=== PATIENT | male | born 1990 | race Two or more races ===

== ENCOUNTER 2019-07-20 19:42 | Emergency (ER) | payer OTHER ==
[2019-07-20 20:57] LABS: ABS Basophils 0.1 10^3/ul (0-0.2); ABS Eosinophils 0.3 10^3/ul (0-0.6); ABS Lymphocytes 3.3 10^3/ul (1.0-4.8); ABS Monocytes 0.6 10^3/ul (0-0.8); ABS Neutrophils 3.5 10^3/ul (1.5-7.7); Eosinophil % 4.3 %; Hematocrit 42 % (42-52); Hemoglobin 14.8 g/dL (14.0-18.0); Lymphocyte % 41.5 %; Mean Corpuscular HGB Conc 35 g/dL (31-36); Mean Corpuscular Hemoglobin 29 pg (27-31); Mean Corpuscular Volume 84 fL (80-94); Mean Platelet Volume 8.1 fL (7.4-10.4); Platelet Count 291 10^3/uL (150-450); Red Blood Count 5.03 10^6 /uL (4.18-5.48); Red Cell Distribution Width 14 % (10-15); White Blood Count 7.9 10^3/uL (3.5-10.8)
[2019-07-20] MEDS ORDERED: LORazepam TAB(*) 0.5 MG PO ONE (20:58)
--- NOTE | 2019-07-20 21:05 | ED ---
Neurological HPI - HPI Summary HPI Summary: Pt is a 29 y/o M presenting to the ED with a chief complaint of neurological issues. Pt states he has seizure hx, and was on Levesam and Encorate in the past , but is no longer on those medications. Today, he had some shooting headaches through the middle of his head. He also felt light headed and two episodes ( which he describes as black out for about 2 second) but denies syncope/LOC. He used to take Frisium (a benzo) after these episodes for seizure prophylaxis but he states he cant find it. He also noted tingling in his BUE and some issues with forming his words which has mostly resolved. He states hes somewhat anxious right now, and has been on 15mg Mortazapine to help him sleep/ calm his anxiety. He states he has seizures from [id number] (3 total) and had extensive workup including CT scans, EEGs. Was taken off medications in Sep 2018. No fevers or infectious symptoms. - History of Current Complaint Chief Complaint: EDSeizure Stated Complaint: HEADACHE PER EMS Time Seen by Provider: 07/20/19 20:26 Hx Obtained From: Patient Onset/Duration: Sudden Onset, Started hours ago, Resolved Timing: Intermittent Episodes Lasting: - seconds Onset Severity: Moderate Current Severity: None Neurological Deficit Location: Generalized Pain Intensity: 4 Pain Scale Used: 0-10 Numeric Episode Lasting: Seconds/Minutes - about 2 seconds Syncope Context: Unwitnessed, Unknown Aggravating: Unknown Alleviating: Unknown Associated Signs and Symptoms: Positive: Headache, Loss of Consciousness, Anxiety Related Hx: Seizure - Allergy/Home Medications Allergies/Adverse Reactions: Allergies Allergy/AdvReac Type Severity Reaction Status Date / Time No Known Allergies Allergy Verified 07/20/19 19:55 Home Medications: Home Medications Mirtazapine 15 mg PO DAILY 07/20/19 [History Confirmed 07/20/19] PMH/Surg Hx/FS Hx/Imm Hx Previously Healthy: Yes Endocrine/Hematology History: Denies: Hx Diabetes Neurological History: Reports: Hx Seizures Infectious Disease History: No Infectious Disease History: Denies: Traveled Outside the [place] in Last 30 Days - Family History Known Family History: Negative: Diabetes - Social History Occupation: Student Alcohol Use: Occasionally Hx Substance Use: No Substance Use Type: Reports: None Hx Tobacco Use: No Smoking Status (MU): Never Smoked Tobacco Review of Systems Neurological: Other - blacking out for about 2 seconds at a time Positive: Paresthesia Positive: Anxious All Other Systems Reviewed And Are Negative: Yes Physical Exam - Summary Physical Exam Summary: Constitutional: Well-developed, Well-nourished, Alert. (-) Distressed Skin: Warm, Dry HENT: Normocephalic; Atraumatic Eyes: Conjunctiva normal Neck: Musculoskeletal ROM normal neck. (-) JVD, (-) Stridor, (-) Nuchal rigidity Cardio: Rhythm regular, rate normal, Heart sounds normal; Intact distal pulses; Radial pulses are 2+ and symmetric. (-) Murmur Pulmonary/Chest wall: Effort normal. (-) Respiratory distress, (-) Wheezes, (-) Rales Abd: Soft, (-) tenderness, (-) Distension, (-) Guarding, (-) Rebound Musculoskeletal: (-) Edema Lymph: (-) Cervical adenopathy Neuro: Alert, Oriented x3, CN 2-12 grossly intact, slow speech. No dysarthria. SILT. Ambulates w steady gait Psych: anxious, no SI or HI. Triage Information Reviewed: Yes Vital Signs On Initial Exam: Initial Vitals Temp Pulse Resp BP Pulse Ox 98 F 74 16 119/85 97 07/20/19 19:43 07/20/19 19:43 07/20/19 19:43 07/20/19 19:43 07/20/19 19:43 Vital Signs Reviewed: Yes Procedures - Sedation Patient Received Moderate/Deep Sedation with Procedure: No Diagnostics - Vital Signs Vital Signs Temp Pulse Resp BP Pulse Ox 07/20/19 20:23 73 23 111/78 98 07/20/19 20:00 76 100 07/20/19 19:53 79 119/85 98 07/20/19 19:43 98 F 74 16 119/85 97 - Laboratory Lab Results: Lab Results 07/20/19 Range/Units 20:52 WBC 7.9 (3.5-10.8) 10^3/uL RBC 5.03 (4.18-5.48) 10^6 /uL Hgb 14.8 (14.0-18.0) g/dL Hct 42 (42-52) % MCV 84 (80-94) fL MCH 29 (27-31) pg MCHC 35 (31-36) g/dL RDW 14 (10-15) % Plt Count 291 (150-450) 10^3/uL MPV 8.1 (7.4-10.4) fL Neut % (Auto) 45.2 % Lymph % (Auto) 41.5 % Lynn % (Auto) 8.2 % Eos % (Auto) 4.3 % Baso % (Auto) 0.8 % Absolute Neuts (auto) 3.5 (1.5-7.7) 10^3/ul Absolute Lymphs (auto) 3.3 (1.0-4.8) 10^3/ul Absolute Monos (auto) 0.6 (0-0.8) 10^3/ul Absolute Eos (auto) 0.3 (0-0.6) 10^3/ul Absolute Basos (auto) 0.1 (0-0.2) 10^3/ul Absolute Nucleated RBC 0.0 10^3/ul Nucleated RBC % 0.0 Result Diagrams: 07/20/19 20:52 07/20/19 20:52 Lab Statement: Any lab studies that have been ordered have been reviewed, and results considered in the medical decision making process. Re-Evaluation - Re-Evaluation First Eval Re-Evaluation Time: 21:50 Change: Improved - d/w patient labs, encouraged to follow up with neurology here as he hasnt seen one recently. Ambulated, AAOx3, NAD. Course/Dx - Course Course Of Treatment: 29 y/o male w hx seizures now off medications and recently put on mirtazapine for anxiety depression presents with fatigue and near syncope. Lightheadedness ddx: Cardiac causes - will check EKG. Electrolyte disturbances - will check CMP. Anemia - will check CBC. Physical exam well- appearing unremarkable neuro mildly anxious. Labs are unremarkable denies infectious symptoms, EKG sinus. - Suspect that fatigue and near syncope could be secondary to medication he recently started, patient was advised that he should follow-up with neurologist. He was given 0.5mg Ativan here for anxiety and feels much better before discharge. Patient was discharged home with friends. - Diagnoses Provider Diagnoses: Fatigue, Near syncope Discharge ED - Sign-Out/Discharge Documenting (check all that apply): Patient Departure - Discharge Plan Condition: Stable Disposition: HOME Patient Education Materials: Near Syncope (ED) Referrals: Jo Trivedi MD [Medical Doctor] - Additional Instructions: You were seen in the emergency department for near syncope. Please take your medication as prescribed. You can take your home med as needed. If any studies were not completed at the time of discharge you will be called with the relevant results. Follow up with neurology Please follow up with your primary care doctor in next 2-3 days and return to emergency department for worsening confusion, passing out, seizurse, or concerning symptoms. It was a pleasure taking care of you today. - Billing Disposition and Condition Condition: STABLE Disposition: Home - Attestation Statements Document Initiated by Tiffany: Yes Documenting Scribe: Awilda Unger Provider For Whom Tiffany is Documenting (Include Credential): Samina Georges MD. Scribe Attestation: I, Awilda Unger, scribed for Samina Georges MD. on 07/21/19 at 1051. Scribe Documentation Reviewed: Yes Provider Attestation: The documentation as recorded by the scribe, Aiwlda Unger accurately reflects the service I personally performed and the decisions made by me, Samina Georges MD. Status of Scribe Document: Viewed Consult Consult: [id number] - I spoke with Dr. Trivedi who states pt is ok to take his normal medication , but he should follow up with neurology outpatient.
[2019-07-20 21:15] LABS: Albumin 4.6 g/dL (3.2-5.2); Albumin/Globulin Ratio 1.5 (1-3); BUN/Creatinine Ratio 9.5 (8-20); Calcium 9.8 mg/dL (8.6-10.3); EGFR African American 153.5 (>60); EGFR Non-African American 126.9 (>60); Globulin 3.1 g/dL (2-4); Potassium 3.8 mmol/L (3.5-5.0); Total Bilirubin 0.4 mg/dL (0.2-1.0); Total Protein 7.7 g/dL (6.4-8.9)
[2019-07-20 22:52] VITALS: BP 121/90
== END 2019-07-20 22:52 | disposition home or self-care (01) ==
LOC: ED 19:42
DX: R53.83 Other fatigue (principal); R55 Syncope and collapse
CPT/HCPCS: 36415; 80053; 85025; 93005; 99282; A9270-GY

== ENCOUNTER 2020-01-03 17:50 | Emergency (ER) | payer OTHER ==
--- NOTE | 2020-01-03 17:59 | ED ---
Upper Extremity Pain - HPI Summary HPI Summary: 29-year-old male with a significant past medical history of epilepsy who states he has dislocated his shoulders may times in the past presents to the emergency department today complaining of 6 out of 10 right shoulder pain. Patient states he was stretching earlier this date and he felt the shoulder "pop out of place". Patient states this occurred 2 times prior to arrival he states the first time he was able to reduce it by himself and the second time it was reduced while walking to the ambulance. Patient believes his shoulder is no longer dislocated upon arrival in the emergency department. Patient has full range of motion and is neurovascularly intact of the right upper extremity. There is no obvious deformity, ecchymosis, edema. Patient is otherwise well and denies fever, cough, sore throat, chest pain, shortness of breath, abdominal pain, nausea, vomiting diarrhea. Patient declines pain medicine at this time. - History of Current Complaint Stated Complaint: SHOULDER PAIN PER EMS Time Seen by Provider: 01/03/20 17:51 Hx Obtained From: Patient Mechanism Of Injury: Other - "stretching" Onset/Duration: Started Hours Ago Timing: Constant Severity Initially: Moderate Severity Currently: Moderate Pain Location: Shoulder Character: Aching Aggravating Factor(s): Movement, Lifting, Flexion, Extension, Abduction, Adduction Alleviating Factor(s): Rest, Ice Associated Signs & Symptoms: Negative: Swelling, Redness, Bruising, Fever, Weakness, Numbness/Tingling, Chest Pain, SOB, Back Pain, Neck Pain, Nausea, Vomiting - Allergies/Home Medications Allergies/Adverse Reactions: Allergies Allergy/AdvReac Type Severity Reaction Status Date / Time No Known Allergies Allergy Verified 09/08/19 07:09 Home Medications: Home Medications Mirtazapine TAB* [Remeron TAB*] 7.5 mg PO BEDTIME 01/03/20 [History Confirmed ] lamoTRIgine TAB(*) [LaMICtal TAB(*)] 75 mg PO BEDTIME 01/03/20 [History Confirmed 01/03/20] PMH/Surg Hx/FS Hx/Imm Hx Endocrine/Hematology History: Denies: Hx Diabetes Cardiovascular History: Denies: Hx Pacemaker/ICD History: Denies: Hx Renal Disease Sensory History: Denies: Hx Hearing Aid Neurological History: Reports: Hx Seizures Psychiatric History: Denies: Hx Panic Disorder - Surgical History Surgery Procedure, Year, and Place: LAPAROSCOPY, intersusception as child - Family History Known Family History: Negative: Diabetes - Social History Alcohol Use: Occasionally Hx Substance Use: No Substance Use Type: Reports: None Hx Tobacco Use: No Smoking Status (MU): Never Smoked Tobacco Review of Systems Constitutional: Negative Eyes: Negative ENT: Negative Cardiovascular: Negative Respiratory: Negative Gastrointestinal: Negative Genitourinary: Negative Positive: Arthralgia, Myalgia, Decreased ROM. Negative: Edema Skin: Negative Neurological/Mental Status: Negative Psychological: Normal All Other Systems Reviewed And Are Negative: Yes Physical Exam - Summary Physical Exam Summary: Patient is in no acute distress. There is obvious deformity, ecchymosis, erythema, edema the right upper extremity. Radial pulses 2+ patient is neurovascularly intact. No evidence of current dislocation. Triage Information Reviewed: Yes Vital Signs Reviewed: Yes Appearance: Positive: Well-Appearing, No Pain Distress, Well-Nourished Skin: Positive: Warm, Skin Color Reflects Adequate Perfusion Eyes: Positive: EOMI, CHICHI ENT: Positive: Hearing grossly normal Respiratory/Lung Sounds: Positive: Clear to Auscultation, Breath Sounds Present Cardiovascular: Positive: RRR, S1, S2 Abdomen Description: Positive: Nontender, Soft Bowel Sounds: Positive: Present Musculoskeletal: Positive: Strength/ROM Intact Neurological: Positive: Sensory/Motor Intact, Alert, Oriented to Person Place, Time, Normal Gait, Facial Symmetry, Speech Normal Psychiatric: Positive: Normal, Affect/Mood Appropriate AVPU Assessment: Alert Procedures - Sedation Patient Received Moderate/Deep Sedation with Procedure: No Course/Dx - Course Course Of Treatment: Patient was evaluated in the emergency department today for shoulder pain after self reducing shoulder dislocation. Vitals noted. Physical exam showed no evidence of continued dislocation. X-ray was done which showed no evidence of dislocation of the right shoulder or fracture however Hill-Sachs deformity was noted. Patient was given a sling and instructions follow-up with orthopedics for further evaluation and management. Patient discharged outpatient follow-up. - Diagnoses Differential Diagnosis/HQI/PQRI: Positive: Arthritis, Contusion, Fracture ( Closed), Strain, Sprain, Other - dislocation Provider Diagnoses: Right shoulder pain Discharge ED - Sign-Out/Discharge Documenting (check all that apply): Patient Departure - Discharge Plan Condition: Stable Disposition: HOME Patient Education Materials: Shoulder Dislocation (ED) Referrals: Rj Oliveira MD [Medical Doctor] - 3 Days Additional Instructions: Please wear a shoulder sling 24 7 for alleviation of your symptoms and prevent dislocation again. Please follow up with orthopedics in 3-5 days for further evaluation and management. Please be sure not to use your right arm for the next 2 days as your ligaments are weak and this puts you at risk for dislocation. You may take ibuprofen 600 mg every 6 hours as needed for pain. Please return to this emergency department immediately should you develop any new or worsening symptoms. - Billing Disposition and Condition Condition: STABLE Disposition: Home - Attestation Statements Provider Attestation: I was available for consult. This patient was seen by the MARY. The patient was not presented to, seen by, or examined by me. Ko Vazquez MD
[2020-01-03 18:45] VITALS: BP 128/81
--- OUTSIDE RECORDS SUMMARY | 2020-01-03 18:47 | XMS REPORT | Continuity of Care Document ---
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 Tablets tabs twice a day for 2 wks then call. Mirtazapine one by mouth at Unknown 15mg bedtime Tablets Immunizations Description No Information Available Vital Signs Date Vital Result Comment 12/06/2019 11:49am Height 69 inches 5'9" Weight 137.50 lb Heart Rate 74 /min BP Systolic Sitting 110 mmHg BP Diastolic Sitting 66 mmHg Respiratory Rate 18 /min BMI (Body Mass Index) 20.3 kg/m2 10/11/2019 11:04am Height 69 inches 5'9" Weight 140.00 lb Heart Rate 72 /min BP Systolic Sitting 110 mmHg BP Diastolic Sitting 64 mmHg Respiratory Rate 18 /min BMI (Body Mass Index) 20.7 kg/m2 Results Description No Information Available Procedures Date Code Description Status 09/03/2019 89660 EEG Recording Awake & Asleep Completed Medical Devices Description No Information Available Encounters Type Date Location Provider Dx Diagnosis Office Visit 10/11/2019 11:00a [facility] Gutierrez Varner, SOMMELIER R53.1 Weakness [facility] R53.83 Other fatigue G40.309 Gen idiopathic epilepsy, not intractable, w/o stat epi R41.3 Other amnesia Assessments Date Code Description Provider 12/06/2019 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 , SOMMELIER syndromes, not intractable, without status epilepticus 12/06/2019 R53.83 Other fatigue Gutierrez Varner, SOMMELIER 12/06/2019 R53.1 Weakness Gutierrez Gardenia, SOMMELIER 10/11/2019 R53.1 Weakness Gutierrez [place], SOMMELIER 10/11/2019 R53.83 Other fatigue Gutierrezedgar Varner, SOMMELIER 10/11/2019 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 SOMMELIER syndromes, not intractable, without status epilepticus 10/11/2019 R41.3 Other amnesia Gutierrez Guerralong, SOMMELIER 09/03/2019 G40.909 Epilepsy, unspecified, not intractable, without Jo Trivedi MD status epilepticus Plan of Treatment 12/06/2019 - Gutierrez Varner, BENJAMIN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 syndromes, not intractable, without status epilepticusFollow up:ONE COYRLW23.83 Other odabazkB86.1 Weakness Functional Status Description No Information Available Mental Status Description No Information Available Referrals Description No Information Available
--- OUTSIDE RECORDS SUMMARY | 2020-01-03 18:47 | XMS REPORT | Continuity of Care Document ---
:1990 External Reference #:[id number] Author Name Gutierrez Varner NP (transmitted by agent of provider Korina Monge) Address [address], [place] [address] Care Team Providers Name Role Phone [facility] Care Team Information Tree Trimmer Helper Problems Description No Information Available Social History [...] Available Procedures Date Code Description Status 09/03/2019 10232 EEG Recording Awake & Asleep Completed Medical Devices Description No Information Available Encounters Type Date Location Provider Dx Diagnosis Office Visit 12/06/2019 [facility] Gutierrez Varner NP G40.309 Gen idiopathic 11:30a [facility] epilepsy, not intractable, w/o stat epi R53.83 Other fatigue R53.1 Weakness Office Visit 10/11/2019 11:00a [facility] Gutierrez Varner NP R53.1 Weakness [facility] R53.83 Other fatigue G40.309 Gen idiopathic epilepsy, not intractable, w/o stat epi R41.3 Other amnesia Assessments Date Code Description Provider 12/06/2019 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 NP syndromes, not intractable, without status epilepticus 12/06/2019 R53.83 Other fatigue Gutierrez Varner NP 12/06/2019 R53.1 Weakness Gutierrez Varner, BENJAMIN 10/11/2019 R53.1 Weakness Gutierrez Varner, BENJAMIN 10/11/2019 R53.83 Other fatigue Gutierrez Varner NP 10/11/2019 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 NP syndromes, not intractable, without status epilepticus 10/11/2019 R41.3 Other amnesia Gutierrez Varner NP 09/03/2019 G40.909 Epilepsy, unspecified, not intractable, without Jo Trivedi MD status epilepticus Plan of Treatment Future Appointment(s):01/10/2020 11:30 am - Gutierrez Varner NP at [facility]12/06/2019 - Gutierrez Varner NP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 syndromes, not intractable, without status epilepticusFollow up:ONE CYCOAN90.83 Other svmqcarE25.1 Weakness Functional Status Description No Information Available Mental Status Description No Information Available Referrals Description No Information Available
== END 2020-01-03 18:45 | disposition home or self-care (01) ==
LOC: ED 17:50
DX: M25.511 Pain in right shoulder (principal); Z79.899 Other long term (current) drug therapy
CPT/HCPCS: 99282

== ENCOUNTER 2020-01-15 13:25 | Emergency (ER) | payer OTHER ==
--- NOTE | 2020-01-15 13:42 | ED ---
Neurological HPI - HPI Summary HPI Summary: 29 y/o male presented to [facility] by [facility] for a sz this morning. Pt reportedly felt a sz coming on and sat down, after which he blacked out 4 times and a roommate called EMS. Pt endorses fatigue and GAR, but denies cough, fever, SOB, CP, abd pain, V/D, and incontinence. Pt has reportedly been experiencing auras on and off for 3 days. Before this, his last sz was years ago. Pt reportedly took his Mirtazapine and Limotrigine this morning. Pt notes his sleep has been irregular lately and he has had multiple anxiety attacks. He has not had alcohol since the COVID- lockdown and does not smoke. No Hx of DM or HTN. He sees Dr. Kelley. - History of Current Complaint Chief Complaint: EDSeizure Stated Complaint: SEIZURES PER EMS Time Seen by Provider: 01/15/20 13:30 Hx Obtained From: Patient Onset/Duration: Started hours ago, Resolved Pain Intensity: 0 Pain Scale Used: 0-10 Numeric Character: Lethargy, Other: - headache Seizure Character: Generalized Aggravating: Sleep Deprivation, Fatigue Alleviating: Medication Associated Signs and Symptoms: Positive: Headache. Negative: Nausea/Vomiting, Diarrhea, Chest Pain, Shortness of Breath TPA Considered: No Related Hx: Seizure - hx of sz years ago - Allergy/Home Medications Allergies/Adverse Reactions: Allergies Allergy/AdvReac Type Severity Reaction Status Date / Time No Known Allergies Allergy Verified 09/08/19 07:09 Home Medications: Home Medications Mirtazapine TAB* [Remeron TAB*] 7.5 mg PO BEDTIME 01/03/20 [History Confirmed ] lamoTRIgine TAB(*) [LaMICtal TAB(*)] 75 mg PO BEDTIME 01/03/20 [History Confirmed 01/03/20] PMH/Surg Hx/FS Hx/Imm Hx Endocrine/Hematology History: Denies: Hx Diabetes Cardiovascular History: Denies: Hx Pacemaker/ICD History: Denies: Hx Renal Disease Sensory History: Denies: Hx Hearing Aid Neurological History: Reports: Hx Seizures Psychiatric History: Denies: Hx Panic Disorder - Surgical History Surgery Procedure, Year, and Place: LAPAROSCOPY, intersusception as child Infectious Disease History: No Infectious Disease History: Denies: Traveled Outside the [place] in Last 30 Days - Family History Known Family History: Negative: Diabetes - Social History Alcohol Use: Occasionally Hx Substance Use: No Substance Use Type: Reports: None Hx Tobacco Use: No Smoking Status (MU): Never Smoked Tobacco Physical Exam - Summary Physical Exam Summary: Constitutional: Well-developed, Well-nourished, Sleepy. (-) Distressed Skin: Warm, Dry HENT: Normocephalic; Atraumatic Eyes: Conjunctiva normal Neck: Musculoskeletal ROM normal neck. (-) JVD, (-) Stridor, (-) Tracheal deviation Cardio: Rhythm regular, rate normal, Heart sounds normal; Intact distal pulses; The pedal pulses are 2+ and symmetric. Radial pulses are 2+ and symmetric. (-) Murmur Pulmonary/Chest wall: Effort normal. (-) Respiratory distress, (-) Wheezes, (-) Rales Abd: Soft, (-) tenderness, (-) Distension, (-) Guarding, (-) Rebound Musculoskeletal: (-) Edema Lymph: (-) Cervical adenopathy Neuro: Alert, Oriented x3. Slow to answer questions but answering appropriately. Psych: Mood and affect Normal Triage Information Reviewed: Yes Vital Signs On Initial Exam: Initial Vitals Temp Pulse Resp BP Pulse Ox 98.2 F 69 10 121/87 100 01/15/20 13:32 01/15/20 13:32 01/15/20 13:32 01/15/20 13:32 01/15/20 13:32 Vital Signs Reviewed: Yes Procedures - Sedation Patient Received Moderate/Deep Sedation with Procedure: No Diagnostics - Vital Signs Vital Signs Temp Pulse Resp BP Pulse Ox 01/15/20 13:32 98.2 F 69 10 121/87 100 - Laboratory Result Diagrams: 01/15/20 13:45 01/15/20 13:45 Lab Statement: Any lab studies that have been ordered have been reviewed, and results considered in the medical decision making process. - EKG 1333 Cardiac Rate: NL EKG Rhythm: Sinus Rhythm ST Segment: Normal Summary of EKG Findings: EKG at 1333 shows NSR at 70bpm. Normal intervals. No STEMI. This EKG was reviewed and interpreted by Dr. Denis. Course/Dx - Course Course Of Treatment: 29 y/o male presented to [facility] by [facility] for a sz this morning. Pt reportedly felt a sz coming on and sat down, after which he blacked out 4 times and a roommate called EMS. Pt endorses fatigue and GAR, but denies cough, fever, SOB, CP, abd pain, V/D, and incontinence. Pt has reportedly been experiencing auras on and off for 3 days. Before this, his last sz was years ago. Pt reportedly took his Mirtazapine and Limotrigine this morning. Pt notes his sleep has been irregular lately and he has had multiple anxiety attacks. He has not had alcohol since the COVID-19 lockdown and does not smoke. No Hx of DM or HTN. He sees Dr. Kelley. Exam showed pt slow to answer questions but answering appropriately. Labs were normal. EKG at 1333 shows NSR at 70bpm. Normal intervals. No STEMI. No evidence of seizure in the emergency department. Unclear if patient had a seizure earlier versus aura versus presyncope. As noted, patient with increased stress/anxiety and poor sleep recently. ED workup unremarkable for acute process. Patient comfortable with discharge home. Has PCP and neurology for follow-up. Pt was diagnosed with syncope; and discharged to home. - Diagnoses Provider Diagnoses: Syncope - Critical Care Time Critical Care Statement: Critical care time is provided exclusive of any time spent performing procedures. Discharge ED - Sign-Out/Discharge Documenting (check all that apply): Patient Departure - dc - Discharge Plan Condition: Stable Disposition: HOME Patient Education Materials: Syncope (ED) Referrals: Replaced By [facility] [Primary Care Provider] - Additional Instructions: Follow up with your primary care provider in 1-3 days. If you experience new or worsening symptoms please return to the ER. - Billing Disposition and Condition Condition: STABLE Disposition: Home - Attestation Statements Document Initiated by Jaimeibe: Yes Documenting Scribe: Gavino Thakkar Provider For Whom Tiffany is Documenting (Include Credential): Adams Denis DO Scribe Attestation: Gavino Chavarria scribed for Adams Denis DO on 01/15/20 at 1852. Scribe Documentation Reviewed: Yes Provider Attestation: The documentation as recorded by the Gavino dc accurately reflects the service I personally performed and the decisions made by me, Adams Denis, DO Status of Scribe Document: Viewed
[2020-01-15 14:09] LABS: ABS Eosinophils 0.1 10^3/ul (0-0.6); ABS Lymphocytes 2.4 10^3/ul (1.0-4.8); ABS Monocytes 0.7 10^3/ul (0-0.8); ABS Neutrophils 3.6 10^3/ul (1.5-7.7); Eosinophil % 1.9 %; Hematocrit 44 % (42-52); Hemoglobin 15.2 g/dL (14.0-18.0); Lymphocyte % 35.3 %; Mean Corpuscular HGB Conc 35 g/dL (31-36); Mean Corpuscular Hemoglobin 30 pg (27-31); Mean Corpuscular Volume 86 fL (80-94); Mean Platelet Volume 8.4 fL (7.4-10.4); Nucleated Red Blood Cells % 0.1; Platelet Count 264 10^3/uL (150-450); Red Blood Count 5.14 10^6 /uL (4.18-5.48); Red Cell Distribution Width 13 % (10-15); White Blood Count 6.9 10^3/uL (3.5-10.8)
[2020-01-15] MEDS ORDERED: NS 0.9% 1000 ML** 1,000 ML IV ONE (14:25)
[2020-01-15 14:31] LABS: Albumin 4.5 g/dL (3.2-5.2); Albumin/Globulin Ratio 1.7 (1-3); BUN/Creatinine Ratio 13.5 (8-20); Calcium 8.9 mg/dL (8.6-10.3); EGFR African American 124.1 (>60); EGFR Non-African American 102.5 (>60); Globulin 2.7 g/dL (2-4); Magnesium 1.9 mg/dL (1.9-2.7); Potassium 3.5 mmol/L (3.5-5.0); Total Bilirubin 0.7 mg/dL (0.2-1.0); Total Protein 7.2 g/dL (6.4-8.9)
--- OUTSIDE RECORDS SUMMARY | 2020-01-15 14:31 | XMS REPORT | Continuity of Care Document ---
:1990 External Reference #:[id number] Author Name Bossman Kelley M.D. Address [address], [place] [address] Problems Description No Information Available Social History Type Date Description Comments Sex Unknown ETOH Use Occasionally consumes alcohol Tobacco Use Start: Unknown Patient has never smoked Recreational Drug Use Never Used Drugs Smoking Status Reviewed: 01/11/20 Patient has never smoked Exercise Type/Frequency Exercises regularly Allergies, Adverse Reactions, Alerts Description No Known Drug Allergies Medications Active Medications SIG Qnty Indications Ordering Provider Date Lamotrigine ER 1 1/2 by mouth 60tabs G40.309 Bossman Kelley, 01/11/2020 100mg every day for 2 M.D. Tablets ER 24HR weeks then 2 qd Mirtazapine 1/2 tablet by Unknown 15mg mouth at bedtime Tablets Calcium 600/Magnesium every morning Unknown 300/Vitamin D 200-100-33.3mg-mg-Uni t Capsules History Medications Lamotrigine 1 tab twice a 70tabs G40.309 Bossman Kelley, 10/11/2019 - 25mg day for 2 wks, M.D. 01/11/2020 Tablets then 2 tabs twice a day for 2 wks then call. 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 epileptic syndromes, not intractable, without status epilepticus 01/11/2020 R53.83 Other fatigue Bossman Kelley M.D. 01/11/2020 G31.84 Mild cognitive impairment, so stated Bossman Kelley M.D. 12/06/2019 G40.309 Generalized idiopathic epilepsy and Gutierrez BENJAMIN Varner epileptic syndromes, not intractable, without status epilepticus 12/06/2019 R53.83 Other fatigue Gutierrez [place], [employer] 12/06/2019 R53.1 Weakness Gutierrez Griseldafracisco, [employer] CONSULTANT 10/11/2019 R53.1 Weakness Gutierrez [place], [employer]ANT 10/11/2019 R53.83 Other fatigue Gutierrez [place], [employer]ANT 10/11/2019 G40.309 Generalized idiopathic epilepsy and Gutierrez [place], [employer] epileptic syndromes, not intractable, without status epilepticus 10/11/2019 R41.3 Other amnesia Gutierrez Villalobos[place], [employer]ANT 09/03/2019 G40.909 Epilepsy, unspecified, not intractable, Jo Trivedi MD without status epilepticus Plan of Treatment 01/11/2020 - Bossman Kelley M.D.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 syndromes, not intractable, without status epilepticusNew Medication: Lamotrigine ER 100 mg - 1 1/2 by mouth every day for 2 weeks then 2 qdR53.83 Other oehswsvG38.84 Mild cognitive impairment, so stated Functional Status Description No Information Available Mental Status Description No Information Available Referrals Description No Information Available
[2020-01-15 16:42] VITALS: BP 119/75
== END 2020-01-15 16:37 | disposition home or self-care (01) ==
LOC: ED 13:25
DX: R55 Syncope and collapse (principal)
CPT/HCPCS: 36415; 80053; 80175; 82550; 83735; 85025; 93005; 96360; 96361; 99284